=== PATIENT | female | born 1965 | race Caucasian/White ===

== ENCOUNTER 2019-05-13 20:26 | Emergency (ER) | payer OTHER ==
[~2019-05-13] VITALS: Ht 162.5 cm; Wt 124.4 kg
--- NOTE | 2019-05-13 21:00 | ED Upper Extremity ---
General Chief Complaint: Laceration Stated Complaint: LACERATION LEFT INDEX FINGER Nursing Triage Note: Patient states that she was slicing potatoes on a slicer and sliced her finger. Patient states that she called the nurse help line and did everything they suggested to get the bleeding to stop. Patient is unable to get it to stop bleeding. Patient has sliced the skin off of her left index finger. It is bleeding but is controlled with pressure. Nursing Sepsis Screen: No Definite Risk History of Present Illness Date Seen by Provider: May 13, 2019 Time Seen by Provider: 20:30 Initial Comments here with superficial lac of the left index finger pad. sliced superficial layers of skin off with a mandolin slicer. could not stop it from bleeding. not on blood thinners Onset: just prior to arrival Pain/Injury Location: right 2nd finger Method of Injury: incised Allergies and Home Medications Allergies Coded Allergies: No Known Drug Allergies (Unverified , 05/13/19) Patient Home Medication List Home Medication List Reviewed: Yes Review of Systems Constitutional: no symptoms reported Musculoskeletal: no symptoms reported Skin: see HPI Psychiatric/Neurological: No Symptoms Reported Past Vetjedd-Peqmvb-Dstlns Hx Past Med/Social Hx: Reviewed Nursing Past Med/Soc Hx Patient Social History Recent Foreign Travel: No Contact w/Someone Who Travel: No Recent Infectious Disease Expo: No Physical Abuse: No Sexual Abuse: No Mistreated: No Fear: No Physical Exam Vital Signs Vital Signs - First Documented 05/13/19 20:32 Temp 35.7 Pulse 89 Resp 18 B/P (MAP) 147/79 (101) Pulse Ox 93 O2 Delivery Room Air Capillary Refill : Less Than 3 Seconds Height, Weight, BMI Height: '" Weight: lbs. oz. kg; 47.00 BMI Method: General Appearance: WD/WN, mild distress Hand: laceration (0.4cm superficial lac to index fenger pad) Neurologic/Tendon: normal sensation, normal motor functions Neurologic/Psychiatric: no motor/sensory deficits, alert Skin: normal color, warm/dry Procedures/Interventions Progress silver nitrate swab to area stopping bleeding Progress/Results/Core Measures Results/Orders Vital Signs/I&O 05/13/19 20:32 Temp 35.7 Pulse 89 Resp 18 B/P (MAP) 147/79 (101) Pulse Ox 93 O2 Delivery Room Air Blood Pressure Mean: 101 Progress Progress Note : Time: 21:06 Progress Note bleeding stopped, pressure dressing and see if problems Departure Impression Primary Impression: Laceration Disposition: 01 HOME, SELF-CARE Condition: Stable Departure-Patient Inst. Referrals: NO,LOCAL PHYSICIAN (PCP/Family) Primary Care Physician Patient Instructions: Wound Care (DC) APOORVA MCKEON JR, MD May 13, 2019 21:00
[2019-05-13 21:18] VITALS: BP 127/75
[2019-05-13] MEDS ORDERED: SILVER NITRATE APPLICATOR 1 PKT TP ONE (22:45)
== END 2019-05-13 21:18 | disposition home or self-care (01) ==
LOC: ER FS 20:31
DX: S61.211A Laceration without foreign body of left index finger without damage to nail, initial encounter (principal); W26.8XXA Contact with other sharp object(s), not elsewhere classified, initial encounter
CPT/HCPCS: 99282

== ENCOUNTER → 2022-01-09 | Outpatient (CLI) | payer MEDICARE ==
--- NOTE | 2022-01-09 12:34 | Diagnostic Imaging Report ---
CLINICAL INDICATION: Patient with chronic sinus drainage x2 years. Patient has history of rhinoplasty at 28 years of age. EXAM: Axial CT scan of the maxillofacial structures without IV contrast . Coronal and sagittal reformations were performed. Auto Exposure Controls were utilized during the CT exam to meet ALARA standards for radiation dose reduction. COMPARISON: None. FINDINGS: PARANASAL SINUSES: FRONTAL: Unremarkable. ETHMOID: Unremarkable. MAXILLARY: Unremarkable. SPHENOID: Unremarkable. OTHER PARANASAL SINUS FINDINGS: None. NASAL SEPTUM: There is roughly 2 mm leftward nasal septal deviation. There is a chronic appearing bony deformity involving the anterior nasal septal region seen which may be from history of surgery or remote posttraumatic changes. VISUALIZED TEMPORAL BONE STRUCTURES: Unremarkable. BONY STRUCTURES: Unremarkable. EXTRACRANIAL SOFT TISSUE/ ORBITS: Unremarkable. IMPRESSION: 1: There is no significant paranasal sinus disease. 2: There is mild leftward nasal septal deviation. Dictated by: Dictated on workstation # [id number]
== END ==
LOC: RAD FS 11:59
PROVIDERS: ATTEND Otolaryngology Otolaryngology/Facial Plastic Surgery
DX: J32.9 Chronic sinusitis, unspecified (principal); J34.2 Deviated nasal septum; Z85.22 Personal history of malignant neoplasm of nasal cavities, middle ear, and accessory sinuses
CPT/HCPCS: 70486

== ENCOUNTER → 2022-04-01 | Outpatient (CLI) | payer MEDICARE | LOC: FS 16:50 | PROVIDERS: ATTEND Registered Nurse Emergency | DX: Z01.419 Encounter for gynecological examination (general) (routine) without abnormal findings (principal); N89.8 Other specified noninflammatory disorders of vagina; B37.31 Acute candidiasis of vulva and vagina | CPT/HCPCS: 87210 ==